=== PATIENT | male | born 1965 | race Caucasian/White ===

== ENCOUNTER 2022-07-06 23:06 | Emergency (ER) | payer OTHER ==
[2022-07-06] MEDS ORDERED: ASPIRIN 81 MG CHEW (CHILDREN'S ASA) PO ONE (23:30)
[2022-07-06] MEDS ORDERED: NITROGLYCERIN 2% OINT 1 GM UNIT DOSE PACKET TOP ONE (23:30)
[2022-07-06 23:32] LABS: BASOPHILS # (AUTO) 0.1 10^3/uL (0.0-0.1); BASOPHILS % (AUTO) 1 % (0-10); EOSINOPHILS # (AUTO) 0.3 10^3/uL (0.0-0.3); EOSINOPHILS % (AUTO) 4 % (0-10); HEMATOCRIT 39 % (40-54); LYMPHOCYTES # (AUTO) 2.3 10^3/uL (1.0-4.0); LYMPHOCYTES % (AUTO) 29 % (12-44); MEAN CORPUSCULAR HEMOGLOBIN 31 pg (25-34); MEAN CORPUSCULAR HGB CONC 36 g/dL (32-36); MEAN CORPUSCULAR VOLUME 86 fL (80-99); MEAN PLATELET VOLUME 10.2 fL (9.0-12.2); MONOCYTES # (AUTO) 0.5 10^3/uL (0.0-1.0); MONOCYTES % (AUTO) 6 % (0-12); NEUTROPHILS # (AUTO) 4.8 10^3/uL (1.8-7.8); NEUTROPHILS % (AUTO) 60 % (42-75); PLATELET COUNT 274 10^3/uL (130-400)
[2022-07-06 23:43] LABS: ALBUMIN 3.7 GM/DL (3.2-4.5); CHLORIDE 108 MMOL/L (98-107); POTASSIUM 3.5 MMOL/L (3.6-5.0); SODIUM 140 MMOL/L (135-145)
[2022-07-06 23:44] LABS: AMYLASE 49 U/L (25-125); CALCIUM 8.9 MG/DL (8.5-10.1)
[2022-07-06 23:45] LABS: GLUCOSE 243 MG/DL (70-105); TOTAL PROTEIN 6.9 GM/DL (6.4-8.2)
[2022-07-06 23:46] LABS: CARBON DIOXIDE 19 MMOL/L (21-32)
[2022-07-06 23:47] LABS: BILIRUBIN,TOTAL 0.4 MG/DL (0.1-1.0); FIBRIN DEGRADATION PRODUCTS 0.54 UG/ML (0.00-0.49); INR 0.9 (0.8-1.4); PROTHROMBIN TIME PATIENT 12.2 SEC (12.2-14.7)
[2022-07-06 23:49] LABS: ALKALINE PHOSPHATASE 99 U/L (40-136); CREATININE SERUM 3.52 MG/DL (0.60-1.30); GFR ESTIMATED 20
[2022-07-06 23:50] LABS: BUN/CREATININE RATIO 13
[2022-07-06 23:52] LABS: ALANINE AMINOTRANSFERASE 16 U/L (0-55); MAGNESIUM 2.1 MG/DL (1.6-2.4)
[2022-07-06 23:53] LABS: CREATINE KINASE 129 U/L (30-200); LIPASE 53 U/L (8-78)
--- NOTE | 2022-07-07 03:16 | ED Chest Pain ---
General Chief Complaint: Chest Pain Stated Complaint: CHEST PAIN Nursing Triage Note: PT AMB TO [facility] 2 WITH CC OF CHEST PAIN X "A COUPLE WEEKS" PT STATES CP GOES DOWN HIS L ARM INTO HIS ELBOW. PT REPORTS CP WORSENS WHEN HE BENDS OVER OR WALKS A LOT. PT HAD TRIPLE BYPASS AND PACEMAKER. Source: patient History of Present Illness Date Seen by Provider: Jul 06, 2022 Time Seen by Provider: 23:10 Allergies and Home Medications Allergies Coded Allergies: hydrocodone (Verified Allergy, Unknown, 07/06/22) Past Lmtwqxc-Faezsv-Povttq Hx Patient Social History Tobacco Use?: No Substance use?: No Alcohol Use?: No Pt feels they are or have been: No Past Medical History Surgery/Hospitalization HX: TRIPLE BYPASS, PACEMAKER, DM, KIDNEY FAILURE Physical Exam Vital Signs Vital Signs - First Documented 07/06/22 23:11 Pulse 60 Resp 15 B/P (MAP) 167/87 (113) Pulse Ox 98 O2 Delivery Room Air Capillary Refill : Less Than 3 Seconds Height, Weight, BMI Height: '" Weight: lbs. oz. kg; BMI Method: Progress/Results/Core Measures Results/Orders Lab Results Laboratory Tests Test 07/06/22 23:25 07/07/22 02:30 Range/Units White Blood Count 8.0 4.3-11.0 10^3/uL Red Blood Count 4.50 4.30-5.52 10^6/uL Hemoglobin 14.0 13.3-17.7 g/dL Hematocrit 39 L 40-54 % Mean Corpuscular Volume 86 80-99 fL Mean Corpuscular Hemoglobin 31 25-34 pg Mean Corpuscular Hemoglobin Concent 36 32-36 g/dL Red Cell Distribution Width 13.1 10.0-14.5 % Platelet Count 274 130-400 10^3/uL Mean Platelet Volume 10.2 9.0-12.2 fL Immature Granulocyte % (Auto) 0 % Neutrophils (%) (Auto) 60 42-75 % Lymphocytes (%) (Auto) 29 12-44 % Monocytes (%) (Auto) 6 0-12 % Eosinophils (%) (Auto) 4 0-10 % Basophils (%) (Auto) 1 0-10 % Neutrophils # (Auto) 4.8 1.8-7.8 10^3/uL Lymphocytes # (Auto) 2.3 1.0-4.0 10^3/uL Monocytes # (Auto) 0.5 0.0-1.0 10^3/uL Eosinophils # (Auto) 0.3 0.0-0.3 10^3/uL Basophils # (Auto) 0.1 0.0-0.1 10^3/uL Immature Granulocyte # (Auto) 0.0 0.0-0.1 10^3/uL Prothrombin Time 12.2 12.2-14.7 SEC INR Comment 0.9 0.8-1.4 Activated Partial Thromboplast Time 21 L 24-35 SEC D-Dimer 0.54 H 0.00-0.49 UG/ML Sodium Level 140 135-145 MMOL/L Potassium Level 3.5 L 3.6-5.0 MMOL/L Chloride Level 108 H 98-107 MMOL/L Carbon Dioxide Level 19 L 21-32 MMOL/L Anion Gap 13 5-14 MMOL/L Blood Urea Nitrogen 46 H 7-18 MG/DL Creatinine 3.52 H 0.60-1.30 MG/DL Estimat Glomerular Filtration Rate 20 BUN/Creatinine Ratio 13 Glucose Level 243 H 70-105 MG/DL Calcium Level 8.9 8.5-10.1 MG/DL Corrected Calcium 9.1 8.5-10.1 MG/DL Magnesium Level 2.1 1.6-2.4 MG/DL Total Bilirubin 0.4 0.1-1.0 MG/DL Aspartate Amino Transf (AST/SGOT) 14 5-34 U/L Alanine Aminotransferase (ALT/SGPT) 16 0-55 U/L Alkaline Phosphatase 99 40-136 U/L Total Creatine Kinase 129 30-200 U/L Creatine Kinase MB 3.0 <6.6 NG/ML Myoglobin 103.2 H 10.0-92.0 NG/ML Troponin I < 0.028 < 0.028 <0.028 NG/ML B-Type Natriuretic Peptide 40.6 <100.0 PG/ML Total Protein 6.9 6.4-8.2 GM/DL Albumin 3.7 3.2-4.5 GM/DL Amylase Level 49 25-125 U/L Lipase 53 8-78 U/L My Orders Orders - TONY MUNIZ DO Cbc With Automated Diff (07/06/22 23:10) Magnesium (07/06/22 23:10) Ekg Tracing (07/06/22 23:10) Comprehensive Metabolic Panel (07/06/22 23:10) Myoglobin Serum (07/06/22 23:10) Protime With Inr (07/06/22 23:10) Partial Thromboplastin Time (07/06/22 23:10) O2 (07/06/22 23:10) Monitor-Rhythm Ecg Trace Only (07/06/22 23:10) Ed Iv/Invasive Line Start (07/06/22 23:10) Creatine Kinase (07/06/22 23:10) Creatine Kinase Mb (07/06/22 23:10) Lipase (07/06/22 23:10) Amylase (07/06/22 23:10) Bnp Sim (07/06/22 23:10) Aspirin Chewable Tablet (Baby Aspirin Ch (07/06/22 23:30) Nitroglycerin Ointment (Nitrobid Ointme (07/06/22 23:30) Fibrin Degradation Products (07/06/22 23:10) Troponin I [place] (07/06/22 23:10) Chest 1 View, Ap/Pa Only (07/07/22 23:10) Ekg Tracing (07/07/22 02:06) Troponin I Sim (07/07/22 02:06) Medications Given in ED Current Medications Medications Dose Ordered Sig/Melissa Route Start Time Stop Time Status Last Admin Dose Admin Aspirin 324 mg ONCE ONCE PO 07/06/22 23:30 07/06/22 23:31 DC 07/06/22 23:40 324 MG Nitroglycerin 1 inch ONCE ONCE TOP 07/06/22 23:30 07/06/22 23:31 DC 07/06/22 23:41 1 INCH Vital Signs/I&O 07/06/22 23:11 Pulse 60 Resp 15 B/P (MAP) 167/87 (113) Pulse Ox 98 O2 Delivery Room Air Blood Pressure Mean: 113 Departure Impression Primary Impression: Chest pain Additional Impressions: HX OF CAD WITH CABG History of permanent cardiac pacemaker placement Disposition: 01 HOME, SELF-CARE Condition: Stable Departure-Patient Inst. Decision time for Depature: 03:10 Referrals: NO,LOCAL PHYSICIAN (PCP/Family) Primary Care Physician Patient Instructions: Chest Pain (DC) Add. Discharge Instructions: CONTINUE ALL YOUR REGULAR MEDICATIONS YOU NEED TO MAKE AN APPOINTMENT WITH THE [facility] --CALL IN THE MORNING TO SCHEDULE AN APPOINTMENT TAKE YOUR HOME NITROGLYCERINE EVERY 5 MINUTES X 3, AND IF YOU PAIN PERSISTS, RETURN TO ER. All discharge instructions reviewed with patient and/or family. Voiced understanding. TONY MUNIZ DO Jul 07, 2022 03:16
[2022-07-07 03:23] VITALS: BP 166/93
--- NOTE | 2022-07-07 08:14 | Diagnostic Imaging Report ---
INDICATION: Chest pain COMPARISON: None available. TECHNIQUE: Single frontal radiograph of the chest dated 07/06/2022. FINDINGS: Pacer device is present with battery pack overlying the right chest. Postsurgical changes of a median sternotomy. The cardiac silhouette is at the upper limits of normal in size. Mild central pulmonary vascular congestion. Low lung volumes without focal pulmonary opacity. No pleural effusion. No pneumothorax. No acute osseous abnormality. IMPRESSION: Mild central pulmonary vascular congestion without significant interstitial edema or pleural effusion. This is likely accentuated by low lung volumes. Additional postsurgical and chronic findings as above. Dictated by: Dictated on workstation # [id number]
== END 2022-07-07 03:23 | disposition home or self-care (01) ==
LOC: EDUNIT# 23:06 → ER 23:09
DX: R07.9 Chest pain, unspecified (principal); Z95.0 Presence of cardiac pacemaker; Z95.5 Presence of coronary angioplasty implant and graft
CPT/HCPCS: 36415; 71045; 80053; 82150; 82550; 82553; 83690; 83735; 83874; 83880; 84484; 85025; 85379; 85610; 85730; 93005; 93041